=== PATIENT | female | born 1990 | race American Indian/Alaskan Native ===

== ENCOUNTER 2016-12-05 14:35 | Emergency (ER) | payer MEDICAID, OTHER ==
[2016-12-05 14:35] VITALS: BMI 29.0
[2016-12-05 14:44] VITALS: BP 118/74; PULSE 84; RESP 16; TEMP 98.6; O2SAT 97
--- NOTE | 2016-12-05 14:47 | ED PDOC ---
Arrival/HPI - General Chief Complaint: ENT Problem Time Seen by Provider: 12/05/16 14:46 Historian: Patient - History of Present Illness Narrative History of Present Illness (Text): 12/05/16 14:46 26 y/o female, pmh including migraine/pylonephritis, nkda, c/o clogging sensation which causing her to have the rt. ear and headache x 4 days. Pt. has no fall or trauma, no dizziness, no change in vision, no night sweat, no neck or back pain, no other medical or psychological complaints. Past Medical History - Provider Review Nursing Documentation Reviewed: Yes - Infectious Disease Hx of Infectious Diseases: None - Tetanus Immunization Tetanus Immunization: Unknown - Reproductive Menopause: No - Past Medical History Past Medical History: No Previous - Cardiac Hx Cardiac Disorders: No - Pulmonary Hx Respiratory Disorders: No - Neurological Hx Neurological Disorder: No - HEENT Hx HEENT Disorder: No - Renal Hx Renal Disorder: No - Endocrine/Metabolic Hx Endocrine Disorders: No - Hematological/Oncological Hx Blood Disorders: No - Integumentary Hx Dermatological Disorder: No - Musculoskeletal/Rheumatological Hx Musculoskeletal Disorders: No - Gastrointestinal Hx Gastrointestinal Disorders: No - Genitourinary/Gynecological Hx Genitourinary Disorders: No - Psychiatric Hx Psychophysiologic Disorder: Yes Hx Depression: No Hx Emotional Abuse: No Hx Physical Abuse: No Hx Substance Use: No - Past Surgical History Past Surgical History: No Previous - Anesthesia Hx Anesthesia: No Hx Anesthesia Reactions: No Hx Malignant Hyperthermia: No - Suicidal Assessment Feels Threatened In Home Enviroment: No Family/Social History - Physician Review Nursing Documentation Reviewed: Yes Family/Social History: Unknown Family HX Smoking Status: Never Smoked Hx Alcohol Use: Yes Hx Substance Use: No Hx Substance Use Treatment: No Allergies/Home Meds Allergies/Adverse Reactions: Allergies No Known Allergies Allergy (Verified 05/25/16 22:32) Home Medications: Home Meds Medication Instructions Recorded Confirmed No Known Home Med 12/05/16 12/05/16 Review of Systems - Review of Systems Constitutional: absent: Fatigue, Fevers Eyes: absent: Vision Changes ENT: Other (+rt. ear pain). absent: Hearing Changes Respiratory: absent: SOB, Cough Cardiovascular: absent: Chest Pain Gastrointestinal: absent: Abdominal Pain Neurological: Headache. absent: Dizziness, Focal Weakness, Gait Changes Physical Exam Vital Signs Reviewed: Yes Vital Signs Temp Pulse Resp BP Pulse Ox 12/05/16 14:41 98.6 F 84 16 118/74 97 12/05/16 14:35 98.6 F 84 16 118/74 97 Temperature: Afebrile Blood Pressure: Normal Pulse: Regular Respiratory Rate: Normal Appearance: Positive for: Well-Appearing, Non-Toxic, Comfortable Pain Distress: Mild Mental Status: Positive for: Alert and Oriented X 3 - Systems Exam Head: Present: Atraumatic, Normocephalic Pupils: Present: PERRL Extroacular Muscles: Present: EOMI Conjunctiva: Present: Normal Ears: Present: Other (Ears: rt. TM and auditory canal unable to visualized due to significant amount of ear wax, lt. TM yuliya color and intact, lt. auditory canal non-erythematous, no mastoid tenderness) Mouth: Present: Moist Mucous Membranes Neck: Present: Normal Range of Motion Respiratory/Chest: Present: Clear to Auscultation, Good Air Exchange. No: Respiratory Distress, Accessory Muscle Use Cardiovascular: Present: Regular Rate and Rhythm, Normal S1, S2. No: Murmurs Abdomen: Present: Normal Bowel Sounds. No: Tenderness, Distention, Peritoneal Signs Back: Present: Normal Inspection Upper Extremity: Present: Normal Inspection. No: Cyanosis, Edema Lower Extremity: Present: Normal Inspection. No: Edema Neurological: Present: GCS=15, CN II-XII Intact, Speech Normal, Motor Func Grossly Intact, Gait Normal, Memory Normal Skin: Present: Warm, Dry, Normal Color. No: Rashes Psychiatric: Present: Alert, Oriented x 3, Normal Insight, Normal Concentration Medical Decision Making ED Course and Treatment: 12/05/16 15:03 -irrigated wit 1000cc of normal saline to the rt. ear, all ear wax irrigated out and pt.'s symptoms resolved. -Ears: bilateral TMs yuliya color and intact, bilateral auditory canal non- erythematous with no abrasion or laceration, no mastoid tenderness 12/05/16 15:19 -Discharge home with education on follow up with your own pmd and ENT within 2 days, return to the ER for any new or worsening signs or symptoms. - PA / SILVER [employer]ER / Resident Statement /DO has reviewed & agrees with the documentation as recorded. Disposition/Present on Arrival - Present on Arrival Any Indicators Present on Arrival: No History of DVT/PE: No History of Uncontrolled Diabetes: No Urinary Catheter: No History of Decub. Ulcer: No History Surgical Site Infection Following: None - Disposition Have Diagnosis and Disposition been Completed?: Yes Diagnosis: Impacted cerumen Disposition: HOME/ ROUTINE Disposition Time: 15:04 Patient Plan: Discharge Condition: GOOD Additional Instructions: -Discharge home with education on follow up with your own pmd and ENT within 2 days, return to the ER for any new or worsening signs or symptoms. Referrals: Richar Childs, [Doctor Osteopathy] - Follow up with primary Forms: WORK NOTE
== END 2016-12-05 15:27 | disposition home or self-care (01) ==
LOC: ED 14:35
DX: H61.21 Impacted cerumen, right ear (principal)

== ENCOUNTER 2017-05-19 21:49 | Emergency (ER) | payer OTHER ==
[2017-05-19 22:08] VITALS: RESP 18; TEMP 97.7; BMI 35.0
--- NOTE | 2017-05-19 22:14 | ED PDOC ---
Arrival/HPI - General Chief Complaint: Female Genitourinary Time Seen by Provider: 05/19/17 21:57 Historian: Patient - History of Present Illness Narrative History of Present Illness (Text): 05/19/17 22:11 A 27 year old female, whose past medical history includes , presents to the emergency department 11-weeks by date (last known menstrual period : March 03), presents to the emergency department with abdominal pain and vaginal bleeding since this morning. The patient denies fevers, chills, headache , dizziness, chest pain, shortness of breath, dyspnea on exertion, cough, nausea , vomiting, diarrhea, back pain, neck pain, urinary/bowel changes, or any other complaint. Time/Duration: Other (This morning) Symptom Onset: Sudden Symptom Course: Unchanged Activities at Onset: Rest Context: Home Past Medical History - Provider Review Nursing Documentation Reviewed: Yes - Infectious Disease Hx of Infectious Diseases: None - Tetanus Immunization Tetanus Immunization: Unknown - Past Medical History Past Medical History: No Previous - Cardiac Hx Cardiac Disorders: No - Pulmonary Hx Respiratory Disorders: No - Neurological Hx Neurological Disorder: No - HEENT Hx HEENT Disorder: No - Renal Hx Renal Disorder: No - Endocrine/Metabolic Hx Endocrine Disorders: No - Hematological/Oncological Hx Blood Disorders: No - Integumentary Hx Dermatological Disorder: No - Musculoskeletal/Rheumatological Hx Musculoskeletal Disorders: No - Gastrointestinal Hx Gastrointestinal Disorders: No - Genitourinary/Gynecological Hx Genitourinary Disorders: No - Psychiatric Hx Psychophysiologic Disorder: Yes Hx Depression: No Hx Emotional Abuse: No Hx Physical Abuse: No Hx Substance Use: No - Past Surgical History Past Surgical History: No Previous - Anesthesia Hx Anesthesia: No Hx Anesthesia Reactions: No Hx Malignant Hyperthermia: No - Suicidal Assessment Feels Threatened In Home Enviroment: No Family/Social History - Physician Review Nursing Documentation Reviewed: Yes Family/Social History: No Known Family HX Smoking Status: Never Smoked Hx Alcohol Use: Yes Hx Substance Use: No Hx Substance Use Treatment: No Allergies/Home Meds Allergies/Adverse Reactions: Allergies No Known Allergies Allergy (Verified 05/25/16 22:32) Home Medications: Home Meds Medication Instructions Recorded Confirmed No Known Home Med 12/05/16 05/19/17 Review of Systems - Physician Review All systems were reviewed & negative as marked: Yes - Review of Systems Constitutional: absent: Fevers, Night Sweats Respiratory: absent: SOB, Cough Cardiovascular: absent: Chest Pain, CARLOS Gastrointestinal: Abdominal Pain. absent: Stool Changes, Diarrhea, Nausea, Vomiting Genitourinary Female: Vaginal Bleeding. absent: Urine Output Changes Musculoskeletal: absent: Back Pain, Neck Pain Neurological: absent: Headache, Dizziness Physical Exam Vital Signs Reviewed: Yes Vital Signs Temp Pulse Resp BP Pulse Ox 05/19/17 23:57 76 18 109/62 100 05/19/17 21:56 97.7 F 78 18 106/70 97 Temperature: Afebrile Blood Pressure: Normal Pulse: Regular Respiratory Rate: Normal Appearance: Positive for: Well-Appearing, Non-Toxic, Comfortable Pain Distress: None Mental Status: Positive for: Alert and Oriented X 3 - Systems Exam Head: Present: Atraumatic, Normocephalic Pupils: Present: PERRL Extroacular Muscles: Present: EOMI Conjunctiva: Present: Normal Mouth: Present: Moist Mucous Membranes Neck: Present: Normal Range of Motion Respiratory/Chest: Present: Clear to Auscultation, Good Air Exchange. No: Respiratory Distress, Accessory Muscle Use Cardiovascular: Present: Regular Rate and Rhythm, Normal S1, S2. No: Murmurs Abdomen: Present: Tenderness (Minimal suprapubic tenderness.) Back: Present: Normal Inspection Upper Extremity: Present: Normal Inspection. No: Cyanosis, Edema Lower Extremity: Present: Normal Inspection. No: Edema Neurological: Present: GCS=15, CN II-XII Intact, Speech Normal Skin: Present: Warm, Dry, Normal Color. No: Rashes Psychiatric: Present: Alert, Oriented x 3, Normal Insight, Normal Concentration Medical Decision Making ED Course and Treatment: 05/19/17 22:14 Impression: A 27 year old female, 11 weeks , presents to the emergency department with a complaint of suprapubic abdominal pain and vaginal bleeding since this morning. Plan: -- Transvaginal Ultrasound -- Labs -- Urinalysis -- Reassess and disposition Prior Visits: Notes and results from previous visits were reviewed. Patient was last seen in the emergency department on 12/05/16. The patient was seen in the emergency department with a complaint of right ear pain and headache. The patient was discharged home. Progress Notes: US First Trimester, Transabdominal Dictated and Authenticated by: Nitesh Rich MD 05/19/2017 11:46 PM Eastern Time ([place] & [place]) IMPRESSION: 1. Findings diagnostic of failure. 05/19/17 23:51: Patient declined pelvic exam. 05/20/17 00:09: Discussed case with regional operations manager OBGYN Dr. Cade. Recommended cytotechnology intravaginally vs expected managment. The patient declined cytotech, will wait for expected managment. Patient was advised of return precatuions. pt also reports blood type o pos. declines to wait for our rh status. will d.c 05/20/17 00:38 - Lab Interpretations Lab Results: 05/19/17 22:20 05/19/17 22:20 Lab Results 05/19/17 22:20: Blood Type Pending, Antibody Screen Pending, BBK History Checked No verified bt 05/19/17 22:20: Beta HCG, Quant 3418.40 H 05/19/17 22:20: Sodium 141, Potassium 3.9, Chloride 103, Carbon Dioxide 26, Anion Gap 16, BUN 10, Creatinine 0.8, Est GFR ( Amer) > 60, Est GFR (Non- Af Amer) > 60, Random Glucose 104, Calcium 9.4, Total Bilirubin 0.2, AST 27, ALT 22, Alkaline Phosphatase 68, Total Protein 8.0, Albumin 4.4, Globulin 3.6, Albumin/Globulin Ratio 1.2 05/19/17 22:20: PT 12.0, INR 1.10 H, APTT 32.2 05/19/17 22:20: WBC 6.6 D, RBC 4.03, Hgb 11.9 L, Hct 35.4 L, MCV 87.8, MCH 29.5 , MCHC 33.6, RDW 13.2, Plt Count 273, MPV 9.7, Gran % 46.7 L, Lymph % (Auto) 42.3 H, [place] % (Auto) 7.6 H, Eos % (Auto) 2.9, Baso % (Auto) 0.5, Gran # 3.09, Lymph # 2.8, [place] # 0.5, Eos # 0.2, Baso # 0.03 I have reviewed the lab results: Yes - RAD Interpretation Radiology Orders: 05/19/17 22:10 OB TRANSVAGINAL [US] Stat - Scribe Statement The provider has reviewed the documentation as recorded by the Scribe Bibi Cage Provider Valery Attestation: All medical record entries made by the Valery were at my direction and personally dictated by me. I have reviewed the chart and agree that the record accurately reflects my personal performance of the history, physical exam, medical decision making, and the department course for this patient. I have also personally directed, reviewed, and agree with the discharge instructions and disposition. Disposition/Present on Arrival - Present on Arrival Any Indicators Present on Arrival: No History of DVT/PE: No History of Uncontrolled Diabetes: No Urinary Catheter: No History of Decub. Ulcer: No History Surgical Site Infection Following: None - Disposition Have Diagnosis and Disposition been Completed?: Yes Diagnosis: Miscarriage Disposition: HOME/ ROUTINE Disposition Time: 12:30 Patient Problems: Current Active Problems Problem Status Onset Miscarriage Acute Condition: STABLE Discharge Instructions (ExitCare): Spontaneous Miscarriage (ED) Additional Instructions: follow up with your doctor/specialist. return to any er with any worsening symptoms heavy bleeding or any concern. Referrals: July Cade MD [Staff Provider] - Follow up with primary Tino Goetz Jr., MD [Primary Care Provider] - Follow up with primary Forms: [employer] ([place])
[2017-05-19 22:34] LABS: BASO # 0.03 K/mm3 (0.0-2.0); BASO % 0.5 % (0.0-3.0); EOS # 0.2 (0.0-0.7); EOS % 2.9 % (1.5-5.0); GRAN # 3.09 (1.4-6.5); GRAN % 46.7 % (50.0-68.0); HEMATOCRIT 35.4 % (36.0-48.0); LYMPH # 2.8 (1.2-3.4); LYMPH % 42.3 % (22.0-35.0); MEAN CELL VOLUME 87.8 fl (80.0-105.0); MEAN CORPUSCULAR HEMOGLOBIN 29.5 pg (25.0-35.0); MEAN CORPUSCULAR HGB CONC 33.6 g/dl (31.0-37.0); MEAN PLATELET VOLUME 9.7 fl (7.0-11.0); MONO # 0.5 (0.1-0.6); MONO % 7.6 % (1.0-6.0); RED CELL DISTRIBUTION WIDTH 13.2 % (11.5-14.5); WHITE BLOOD COUNT 6.6 10^3/ul (4.5-11.0)
[2017-05-19 22:46] LABS: ALB/GLOB RATIO 1.2 (1.1-1.8); ALKALINE PHOSPHATASE 68 U/L (38-126); ALT/SGPT 22 U/L (7-56); AST/SGOT 27 U/L (14-36); BILIRUBIN,TOTAL 0.2 mg/dL (0.2-1.3); BLOOD UREA NITROGEN 10 mg/dL (7-21); CALCIUM 9.4 mg/dL (8.4-10.5); CARBON DIOXIDE 26 mmol/L (21-33); CHLORIDE 103 mmol/L (98-107); GFR AFRICAN-AMERICAN > 60; GLUCOSE,RANDOM 104 mg/dL (70-110); POTASSIUM 3.9 mmol/L (3.6-5.0); SODIUM 141 mmol/L (132-148)
[2017-05-19 22:49] LABS: INR 1.1 (0.93-1.08); PARTIAL THROMBOPLASTIN TIME 32.2 Seconds (25.1-36.5)
--- NOTE | 2017-05-19 23:46 | US ---
EXAM: US First Trimester, Transabdominal CLINICAL HISTORY: 27 years old, female; Pain; complicated by abdominal or pelvic pain; Lower; First trimester; Gestational age or lmp: 11wks; ; Patient HX: Bleeding; Additional info: Abd pain pregant TECHNIQUE: Real-time transabdominal obstetrical ultrasound of the maternal pelvis and a first trimester with image documentation. COMPARISON: No relevant prior studies available. FINDINGS: Gestation: Gestational sac. No yolk sac. pole. No heartbeat detected. Lipan-rump length of 0.74 cm, correlating with gestational age of 6 weeks 4 days. Mean sac diameter of 3.13 cm, correlating with gestational age of 8 weeks 0 days. Uterus/cervix: No subchorionic hemorrhage. No cervical dilatation or effacement. Ovaries: Normal ovaries. No adnexal masses. Free fluid: No significant free fluid. IMPRESSION: 1. Findings diagnostic of failure. EXAM: US , Transvaginal CLINICAL HISTORY: 27 years old, female; Pain; complicated by abdominal or pelvic pain; Lower; First trimester; Gestational age or lmp: 11wks; ; Patient HX: Bleeding; Additional info: Abd pain pregant TECHNIQUE: Real-time transvaginal obstetrical ultrasound of the maternal pelvis and a first trimester with image documentation. Transvaginal imaging was used for better evaluation of the fetus and adnexa. COMPARISON: No relevant prior studies available. FINDINGS: Gestation: Gestational sac. No yolk sac. pole. No heartbeat detected. Lipan-rump length of 0.74 cm, correlating with gestational age of 6 weeks 4 days. Mean sac diameter of 3.13 cm, correlating with gestational age of 8 weeks 0 days. Uterus/cervix: No subchorionic hemorrhage. No cervical dilatation or effacement. Ovaries: Normal ovaries. No adnexal masses. Free fluid: No significant free fluid.
[2017-05-19 23:59] VITALS: BP 109/62; PULSE 76; O2SAT 100
== END 2017-05-20 00:47 | disposition home or self-care (01) ==
LOC: ED 21:49
DX: O03.9 Complete or unspecified spontaneous abortion without complication (principal); Z3A.11 11 weeks gestation of pregnancy

== ENCOUNTER 2017-08-14 09:28 | Emergency (ER) | payer OTHER ==
[2017-08-14 09:28] VITALS: BMI 35.0
[2017-08-14 09:58] VITALS: RESP 18; TEMP 99
[2017-08-14] MEDS ORDERED: Sodium Chloride 0.9% 1,000 ML IV STA (10:10)
[2017-08-14 10:29] LABS: URINE BILIRUBIN NEGATIVE (NEGATIVE); URINE BLOOD LARGE (NEGATIVE); URINE GLUCOSE (UA) NEGATIVE (NEGATIVE); URINE LEUKOCYTE ESTERASE SMALL Leu/uL (NEGATIVE); URINE PROTEIN 100 mg/dL (<30 mg/dL); URINE UROBILINOGEN 0.2 E.U./dL (<1 E.U./dL)
[2017-08-14 10:31] LABS: URINE APPEARANCE CLOUDY (CLEAR); URINE COLOR DARK YELLOW (YELLOW)
[2017-08-14 10:42] LABS: URINE BACTERIA MANY (NEG); URINE RBC TNTC /hpf (0-2); URINE WBC 20 - 25 /hpf (0-6)
[2017-08-14 10:56] LABS: BASO # 0.02 K/mm3 (0.0-2.0); BASO % 0.2 % (0.0-3.0); EOS # 0.1 (0.0-0.7); EOS % 1.5 % (1.5-5.0); GRAN # 3.96 (1.4-6.5); GRAN % 49.4 % (50.0-68.0); HEMOGLOBIN 11.6 g/dL (12.0-16.0); LYMPH # 3.4 (1.2-3.4); LYMPH % 42.5 % (22.0-35.0); MEAN CELL VOLUME 86.9 fl (80.0-105.0); MEAN CORPUSCULAR HEMOGLOBIN 28.7 pg (25.0-35.0); MEAN PLATELET VOLUME 9.6 fl (7.0-11.0); MONO # 0.5 (0.1-0.6); MONO % 6.4 % (1.0-6.0); RBC 4.04 10^6/uL (3.5-6.1); RED CELL DISTRIBUTION WIDTH 13.2 % (11.5-14.5)
[2017-08-14 11:06] LABS: ALB/GLOB RATIO 1.1 (1.1-1.8); ALBUMIN 4.4 g/dL (3.0-4.8); ALT/SGPT 31 U/L (7-56); AST/SGOT 32 U/L (14-36); BLOOD UREA NITROGEN 10 mg/dL (7-21); CALCIUM 9.7 mg/dL (8.4-10.5); GFR AFRICAN-AMERICAN > 60; GFR NON-AFRICAN AMERICAN > 60
[2017-08-14 11:11] LABS: INR 1.09 (0.93-1.08); PARTIAL THROMBOPLASTIN TIME 30.5 Seconds (25.1-36.5); PROTHROMBIN TIME 12.5 SECONDS (9.4-12.5)
--- NOTE | 2017-08-14 11:20 | ED PDOC ---
Arrival/HPI - General Chief Complaint: Female Genitourinary Time Seen by Provider: 08/14/17 10:08 Historian: Patient - History of Present Illness Narrative History of Present Illness (Text): 08/14/17 11:17 27yo female with no PMHx who present with complaint of vaginal bleeding x one week. Patient states she uses 4 heavy sanitary pads soak through daily. She denies nausea, vomiting, abdominal pain, dizziness, chest pain, SOB, diaphoresis , fever, chills, any other complaint. Past Medical History - Provider Review Nursing Documentation Reviewed: Yes - Infectious Disease Hx of Infectious Diseases: None - Tetanus Immunization Tetanus Immunization: Unknown - Reproductive Menopause: No - Past Medical History Past Medical History: No Previous - Cardiac Hx Cardiac Disorders: No - Pulmonary Hx Respiratory Disorders: No - Neurological Hx Neurological Disorder: No - HEENT Hx HEENT Disorder: No - Renal Hx Renal Disorder: No - Endocrine/Metabolic Hx Endocrine Disorders: No - Hematological/Oncological Hx Blood Disorders: No - Integumentary Hx Dermatological Disorder: No - Musculoskeletal/Rheumatological Hx Musculoskeletal Disorders: No - Gastrointestinal Hx Gastrointestinal Disorders: No - Genitourinary/Gynecological Hx Genitourinary Disorders: No - Psychiatric Hx Psychophysiologic Disorder: Yes Hx Depression: No Hx Emotional Abuse: No Hx Physical Abuse: No Hx Substance Use: No - Past Surgical History Past Surgical History: No Previous - Anesthesia Hx Anesthesia: No Hx Anesthesia Reactions: No Hx Malignant Hyperthermia: No - Suicidal Assessment Feels Threatened In Home Enviroment: No Family/Social History - Physician Review Nursing Documentation Reviewed: Yes Family/Social History: Unknown Family HX Smoking Status: Never Smoked Hx Alcohol Use: Yes Hx Substance Use: No Hx Substance Use Treatment: No Allergies/Home Meds Allergies/Adverse Reactions: Allergies No Known Allergies Allergy (Verified 05/25/16 22:32) Review of Systems - Physician Review All systems were reviewed & negative as marked: Yes - Review of Systems Constitutional: Normal Eyes: Normal ENT: Normal Respiratory: Normal Cardiovascular: Normal Gastrointestinal: Normal Genitourinary Female: Vaginal Bleeding. absent: Dysuria, Frequency, Hematuria Musculoskeletal: Normal Skin: Normal Neurological: Normal Endocrine: Normal Hemo/Lymphatic: Normal Psychiatric: Normal Physical Exam Vital Signs Reviewed: Yes Vital Signs Temp Pulse Resp BP Pulse Ox 08/14/17 12:10 79 18 121/74 100 08/14/17 09:53 99 F 82 18 130/93 H 99 Temperature: Afebrile Blood Pressure: Normal Pulse: Regular Respiratory Rate: Normal Appearance: Positive for: Well-Appearing, Non-Toxic, Comfortable Pain Distress: None Mental Status: Positive for: Alert and Oriented X 3 - Systems Exam Head: Present: Atraumatic, Normocephalic Pupils: Present: PERRL Extroacular Muscles: Present: EOMI Conjunctiva: Present: Normal Mouth: Present: Moist Mucous Membranes Neck: Present: Normal Range of Motion Respiratory/Chest: Present: Clear to Auscultation, Good Air Exchange. No: Respiratory Distress, Accessory Muscle Use Cardiovascular: Present: Regular Rate and Rhythm, Normal S1, S2. No: Murmurs Abdomen: Present: Normal Bowel Sounds. No: Tenderness, Distention, Peritoneal Signs, Rebound, Guarding, McBurney's Point Tender, Rovsing's Sign Present Genitourinary/Pelvic Exam: Present: Vaginal Bleeding (Small blood pooling noted in vault). No: Cervical Motion Tendernes Back: Present: Normal Inspection Upper Extremity: Present: Normal Inspection. No: Cyanosis, Edema Lower Extremity: Present: Normal Inspection. No: Edema Neurological: Present: GCS=15, CN II-XII Intact, Speech Normal Skin: Present: Warm, Dry, Normal Color. No: Rashes Psychiatric: Present: Alert, Oriented x 3, Normal Insight, Normal Concentration Medical Decision Making ED Course and Treatment: 08/14/17 19:07 PT was not in any distress in ED. Her H/H was 11.6. she was hydrated in ED. Result was DW the pt. She was placed on Provera 10mg. She have a [employer] MILLWRIGHT and was advised to f/u with her INDUSTRIAL MILLWRIGHT. TRT ED for any new or worsening symptoms. - Lab Interpretations Lab Results: 08/14/17 10:25 08/14/17 10:25 Lab Results 08/14/17 10:25: Sodium 142, Potassium 3.9, Chloride 103, Carbon Dioxide 27, Anion Gap 16, BUN 10, Creatinine 0.8, Est GFR ( Amer) > 60, Est GFR (Non- Af Amer) > 60, Random Glucose 93, Calcium 9.7, Total Bilirubin 0.2, AST 32, ALT 31, Alkaline Phosphatase 78, Total Protein 8.2, Albumin 4.4, Globulin 3.8, Albumin/Globulin Ratio 1.1 03/20/18 10:25: PT 12.5, INR 1.09 H, APTT 30.5 08/14/17 10:25: WBC 8.0 D, RBC 4.04, Hgb 11.6 L, Hct 35.1 L, MCV 86.9, MCH 28.7 , MCHC 33.0, RDW 13.2, Plt Count 315, MPV 9.6, Gran % 49.4 L, Lymph % (Auto) 42.5 H, [place] % (Auto) 6.4 H, Eos % (Auto) 1.5, Baso % (Auto) 0.2, Gran # 3.96, Lymph # (Auto) 3.4, [place] # (Auto) 0.5, Eos # (Auto) 0.1, Baso # (Auto) 0.02 08/14/17 10:20: Urine Color Dark yellow, Urine Appearance Cloudy, Urine pH 6.0, Ur Specific [place] 1.025, Urine Protein 100 H, Urine Glucose (UA) Negative, Urine Ketones Trace H, Urine Blood Large H, Urine Nitrate Negative, Urine Bilirubin Negative, Urine Urobilinogen 0.2, Ur Leukocyte Esterase Small H, Urine RBC Tntc, Urine WBC 20 - 25, Ur Epithelial Cells 6 - 8, Urine Bacteria Many - Medication Orders Current Medication Orders: Discontinued Medications Sodium Chloride (Sodium Chloride 0.9%) 1,000 mls @ 999 mls/hr IV .Q1H1M STA Stop: 08/14/17 11:10 Last Admin: 08/14/17 10:23 Dose: 999 mls/hr eMAR Start Stop Document 08/14/17 10:23 EQ (Rec: 08/14/17 10:23 EQ [id number]) Intravenous Solution Start Date 08/14/17 Start Time 10:23 Disposition/Present on Arrival - Present on Arrival Any Indicators Present on Arrival: No History of DVT/PE: No History of Uncontrolled Diabetes: No Urinary Catheter: No History of Decub. Ulcer: No History Surgical Site Infection Following: None - Disposition Have Diagnosis and Disposition been Completed?: Yes Diagnosis: Dysfunctional uterine bleeding Disposition: HOME/ ROUTINE Disposition Time: 11:20 Patient Plan: Discharge Condition: STABLE Discharge Instructions (ExitCare): Heavy Periods Additional Instructions: Follow up with your [employer] [facility] Return to ED for any new or worsening symptoms Prescriptions: MedroxyPROGESTERone [Provera] 10 mg PO DAILY #6 tab Referrals: Patria Torres, [Primary Care Provider] - Follow up with primary Kyler Avila MD [Staff Provider] - Follow up with primary Forms: [employer] ([place])
[2017-08-14 12:11] VITALS: BP 121/74; PULSE 79; O2SAT 100
== END 2017-08-14 12:11 | disposition home or self-care (01) ==
LOC: ED 09:28
DX: N93.8 Other specified abnormal uterine and vaginal bleeding (principal)
CPT/HCPCS: 80053; 81001; 85025; 85610; 85730; 87086; 99283; J7040